=== PATIENT | female | born 1970 | race Two or more races ===

== ENCOUNTER 2019-01-06 10:29 | Outpatient (RCR) | payer BC | END 2019-01-14 | disposition home or self-care (01) | LOC: WCC 10:29 | DX: T86.828 Other complications of skin graft (allograft) (autograft) (principal) | CPT/HCPCS: G0277; G0463; 99204 ==

== ENCOUNTER 2019-01-06 12:52 | Outpatient (RCR) | payer SELFPAY | END 2019-01-14 | disposition home or self-care (01) | LOC: WCC 12:52 | DX: T86.828 Other complications of skin graft (allograft) (autograft) (principal) ==

== ENCOUNTER 2019-01-16 08:11 | Outpatient (RCR) | payer BC | END 2019-02-14 | disposition home or self-care (01) | LOC: WCC 08:11 | DX: T86.828 Other complications of skin graft (allograft) (autograft) (principal) | CPT/HCPCS: G0277; G0463 ==